=== PATIENT | female | born 2000 | race American Indian/Alaskan Native ===

== ENCOUNTER 2020-04-18 14:44 | Outpatient (CLI) | payer OTHER ==
--- NOTE | 2020-04-18 16:51 | XRay Report ---
ABDOMEN 1 VIEW 04/18/2020 3:44 PM INDICATION / CLINICAL INFORMATION: ABDOMINAL PAIN. COMPARISON: None available. FINDINGS: TUBES / LINES: None. BOWEL GAS PATTERN: No dilated small or large bowel. Moderate amount of fecal material throughout the colon. FREE AIR / EXTRALUMINAL GAS: None. ADDITIONAL FINDINGS: No significant additional findings. IMPRESSION: 1. No bowel obstruction or free air. Moderate fecal material throughout the colon. Signer Name: Jose Maria Lai MD Signed: 04/18/2020 4:47 PM Workstation Name: [id number]
--- NOTE | 2020-04-18 17:08 | XRay Report ---
PARANASAL SINUSES 4 VIEW(S) INDICATION / CLINICAL INFORMATION: SINUS PAIN, BLOCKAGE. COMPARISON: None available. FINDINGS: SINUSES: No air-fluid level. No mucosal thickening. ADDITIONAL FINDINGS: None. IMPRESSION: 1. No significant abnormality. Signer Name: Harpreet Zacarias MD Signed: 04/18/2020 5:04 PM Workstation Name: [id number]
== END 2020-04-18 14:45 | disposition home or self-care (01) ==
LOC: LAB 14:44
PROVIDERS: ATTEND Internal Medicine Hematology & Oncology
DX: R10.9 Unspecified abdominal pain (principal); J34.89 Other specified disorders of nose and nasal sinuses
CPT/HCPCS: 70220; 74018

== ENCOUNTER 2020-04-29 08:35 | Outpatient (CLI) | payer OTHER ==
--- NOTE | 2020-04-29 09:58 | Ultrasound Report ---
ULTRASOUND ABDOMEN, COMPLETE INDICATION: ABDOMINAL PAIN COMPARISON: None available. FINDINGS: Pancreas: Normal. Abdominal Aorta: Normal. IVC: Normal. Liver: Normal. Gallbladder: Normal. Bile ducts: Normal. Common Bile Duct measures 3-4 mm. Right Kidney: Mild pelvocaliectasis. Left Kidney: Normal. Spleen: Normal. Free fluid: None. Additional Findings: None. IMPRESSION: 1. Mild right renal pelvocaliectasis. Otherwise unremarkable abdominal ultrasound. Signer Name: Moi Becerra MD Signed: 04/29/2020 9:54 AM Workstation Name: [email or web address]
== END 2020-04-29 08:36 | disposition home or self-care (01) ==
LOC: US 08:35
PROVIDERS: ATTEND Internal Medicine Hematology & Oncology
DX: N28.89 Other specified disorders of kidney and ureter (principal)
CPT/HCPCS: 76700

== ENCOUNTER 2020-05-01 03:05 | Inpatient (IN) | payer OTHER ==
--- NOTE | 2020-05-01 03:28 | Emergency Department Report ---
Blank Doc - Documentation Documentation: 19-year-old female past medications except asthma department complaining of reed ving a sickle cell flareup pain to the right side and hip region. Reports no hemoptysis no hematemesis no fevers, chills, sweats. This initial assessment/diagnostic orders/clinical plan/treatment(s) is/are subject to change based on patients health status, clinical progression and re- assessment by fellow clinical providers in the ED. Further treatment and workup at subsequent clinical providers discretion. Patient/guardian urged not to elope from the ED as their condition may be serious if not clinically assessed and managed. Initial orders include: Is sickle cell protocol
[2020-05-01 04:48] LABS: Hematocrit 20.2 % (30.3-42.9); Hemoglobin 7.2 gm/dl (10.1-14.3); Mean Corpuscular HGB Conc 36 % (30-34); Mean Corpuscular Volume 86 fl (79-97); Platelet Count 599 K/mm3 (140-440); Red Blood Count 2.34 M/mm3 (3.65-5.03)
[2020-05-01 06:02] LABS: Anisocytosis 3+; Sickle Cells 2+; Total Cells Counted 100
[2020-05-01 06:03] LABS: Hypochromasia 2+; Platelet Estimate Consistent w Auto; Target Cells 1+
[2020-05-01] MEDS ORDERED: HYDROmorphone 1 MG/1 ML INJ IV ONE (06:14)
[2020-05-01] MEDS ORDERED: diphenhydrAMINE 50 MG/ML VIAL IV ONE (06:14)
[2020-05-01] MEDS ORDERED: ONDANSETRON 4 MG/2 ML INJ IV ONE (06:14)
[2020-05-01] MEDS: D5W/0.2% NACL 1,000 ML IV SCH ×2 (06:50→10:17)
--- NOTE | 2020-05-01 07:04 | Emergency Department Report ---
ED General Adult HPI - General Chief complaint: Sickle Cell Crisis Stated complaint: SICKLE CELL CRISIS LEG PAIN Time Seen by Provider: 05/01/20 06:11 Source: patient Mode of arrival: Ambulatory Limitations: No Limitations - History of Present Illness Initial comments: This is a 19-year old female with a history of sickle cell disease and no recent travel. She reports typical sickle cell pain involving both her legs diffusely and right hip over the last few days. She took oxycodone at home but is having breakthrough pain. She states that she feels weak in general. She questions as to whether or not she needs a transfusion. Her assistant operator is Dr. Parsons who apparently transfused her in 2020 with a hemoglobin of 6.2 : Hospitalization Reason for admission: SCD/acute pain crisis/anemia. Hospital course: Patient presented to the ER, with CC of diffuse joint pain, and unable to control at home, and in the office, she was admitted to the hospital, for sxs management, and control. She was treated , with hydration, pain control, and blood transfusion, for hgb of 5he tolerated her treatment well, and rated her pain at 6.5/10.No new issues at this time, and will be discharged home in the am of 05/28/2019. Disposition: DC-01 TO HOME OR SELFCARE - Discharge Diagnoses (1) Sickle cell anemia with pain Status: Inactive (2) Dehydration Status: Inactive (3) Generalized weakness Status: Inactive -: Gradual, days(s) Location: lower extremity Radiation: non-radiation Severity scale (0 -10): 9 Quality: aching Consistency: intermittent Improves with: none Worsens with: none Associated Symptoms: denies other symptoms Treatments Prior to Arrival: none - Related Data Home Medications Medication Instructions Recorded Confirmed Last Taken B Complex 1 tab PO DAILY 05/27/19 05/27/19 05/24/19 Folic Acid 1 tab PO DAILY 05/27/19 05/27/19 05/24/19 Hydroxyurea 500 mg PO DAILY 05/27/19 05/27/19 05/24/19 Allergies Allergy/AdvReac Type Severity Reaction Status Date / Time No Known Allergies Allergy Unverified 05/25/19 13:23 ED Review of Systems ROS: Stated complaint: SICKLE CELL CRISIS LEG PAIN Other details as noted in HPI Constitutional: weakness. denies: chills, fever Eyes: denies: eye pain, vision change ENT: denies: ear pain, throat pain Respiratory: denies: cough, shortness of breath Cardiovascular: denies: chest pain, palpitations Endocrine: no symptoms reported Gastrointestinal: denies: abdominal pain, nausea, diarrhea Genitourinary: denies: urgency, dysuria Musculoskeletal: as per HPI. denies: back pain Skin: denies: rash, lesions Neurological: denies: headache, weakness, paresthesias Psychiatric: denies: anxiety, depression Hematological/Lymphatic: denies: easy bleeding, easy bruising ED Past Medical Hx - Past Medical History Previous Medical History?: Yes Hx Sickle Cell Disease: Yes - Surgical History Past Surgical History?: Yes - Social History Smoking Status: Never Smoker Substance Use Type: None - Medications Home Medications: Home Medications Medication Instructions Recorded Confirmed Last Taken Type B Complex 1 tab PO DAILY 05/27/19 05/27/19 05/24/19 History Folic Acid 1 tab PO DAILY 05/27/19 05/27/19 05/24/19 History Hydroxyurea 500 mg PO DAILY 05/27/19 05/27/19 05/24/19 History ED Physical Exam - General Limitations: No Limitations General appearance: cachectic (Somewhat) - Head Head exam: Present: atraumatic - Eye Eye exam: Present: PERRL, EOMI - ENT ENT exam: Present: mucous membranes moist - Neck Neck exam: Present: normal inspection - Respiratory Respiratory exam: Present: normal lung sounds bilaterally. Absent: respiratory distress - Cardiovascular Cardiovascular Exam: Present: regular rate, normal rhythm. Absent: systolic murmur, diastolic murmur, rubs, gallop - GI/Abdominal GI/Abdominal exam: Present: soft, normal bowel sounds. Absent: distended, tenderness, guarding, rebound, rigid - Extremities Exam Extremities exam: Present: normal inspection, full ROM, normal capillary refill. Absent: tenderness, pedal edema, joint swelling, calf tenderness - Back Exam Back exam: Present: normal inspection - Neurological Exam Neurological exam: Present: alert, oriented X3, CN II-XII intact. Absent: motor sensory deficit - Psychiatric Psychiatric exam: Present: normal affect, normal mood - Skin Skin exam: Present: warm, dry, intact, normal color. Absent: rash ED Course Vital Signs 05/01/20 05/01/20 05/01/20 03:24 06:51 07:18 Temperature 98.3 F Pulse Rate 86 73 Respiratory 20 18 16 Rate Blood Pressure 118/57 Blood Pressure 119/71 [Right] O2 Sat by Pulse 93 97 Oximetry 05/01/20 07:20 Temperature Pulse Rate Respiratory 18 Rate Blood Pressure Blood Pressure [Right] O2 Sat by Pulse Oximetry - Reevaluation(s) Reevaluation #1: Hypotonic solution controlled rate. Analgesia. Recheck her chemistries type and screen and consult with hospitalist regarding admission. Reticulocyte count was over 14 and hemoglobin about 7. 05/01/20 07:05 Reevaluation #2: Discussed with hospitalist and will admit. Consult placed to assistant operator. 05/01/20 08:08 Reevaluation #3: Patient resting comfortably on reexam. She does not desire admission. 05/01/20 08:09 ED Medical Decision Making - Lab Data Result diagrams: 05/01/20 03:38 Critical care attestation.: If time is entered above; I have spent that time in minutes in the direct care of this critically ill patient, excluding procedure time. ED Disposition Clinical Impression: Vaso-occlusive sickle cell crisis, Symptomatic anemia Disposition: 09 OP ADMIT IP TO THIS HOSP Is pt being admited?: Yes Does the pt Need Aspirin: Yes Condition: Stable Referrals: JAMIE REID DO [Primary Care Provider] - 3-5 Days Time of Disposition: 08:09
[2020-05-01 07:30] LABS: INR 1.22 (0.87-1.13)
[2020-05-01 07:31] LABS: Partial Thromboplastin Time 32.8 Sec. (24.2-36.6)
[2020-05-01 07:48] LABS: Blood Urea Nitrogen 6 mg/dL (7-17); Calcium 9.3 mg/dL (8.4-10.2); Hemolysis Index 8
[2020-05-01 07:52] LABS: Albumin 4.7 g/dL (3.9-5); Bilirubin,Direct 0.5 mg/dL (0-0.2)
[2020-05-01 08:24] LABS: BUN/Creatinine Ratio 20
[2020-05-01 08:43] LABS: Bacteria,Urine 1+ /HPF (Negative); Bilirubin,Urine NEG (Negative); Blood,Urine MOD (Negative); Color,Urine Yellow (Yellow); Mucus,Urine FEW /HPF; Urobilinogen,Urine < 2.0 mg/dL (<2.0)
[2020-05-01] MEDS ORDERED: ONDANSETRON 4 MG/2 ML INJ IV PRN (10:42)
[2020-05-01] MEDS ORDERED: MAGNESIUM HYDROXIDE (MOM) ORAL LIQD UDC PO PRN (10:42)
[2020-05-01] MEDS ORDERED: NALOXONE 0.4 MG/1 ML INJ IV PRN (10:42)
[2020-05-01] MEDS ORDERED: diphenhydrAMINE 25 MG CAP PO PRN (10:42)
[2020-05-01] MEDS ORDERED: HYDROmorphone 2 MG/1 ML INJ IV ONE (10:45)
--- NOTE | 2020-05-01 10:51 | History and Physical Report ---
History of Present Illness Date of examination: 05/01/20 Date of admission: 05/01/20 08:10 Chief complaint: Generalized body pains and bilateral lower extremity pain History of present illness: 19-year old female patient with significant past medical history of sickle cell disease and no recent travel. Presented to the emergency room with generalized body pains mainly , leg and and right hip pain over the last few days. She took oxycodone at home but is having breakthrough pain. She also complains of generalized weakness. She claims compliance with her medications and follows with computational mathematician Dr. Osiel maguire. She had a couple of transfusions in the past. Had an episode of 101 degrees fall in height fever this morning denies nausea vomiting abdominal pain. Denies chest pain or shortness of breath, Complains of generalized weakness Initial work-up in the emergency room findings consistent with leukocytosis, hyperbilirubinemia, UA findings consistent with UTI Hemoglobin 7.2. Patient had transfusion for hemoglobin of 6.2 in 2019 Past History Past Medical History: anemia (Sickle cell anemia), other (Sickle cell disease) Past Surgical History: No surgical history Social history: denies: smoking, alcohol abuse, prescription drug abuse Family history: no significant family history Medications and Allergies Allergies Allergy/AdvReac Type Severity Reaction Status Date / Time No Known Allergies Allergy Unverified 05/25/19 13:23 Home Medications Medication Instructions Recorded Confirmed Last Taken Type B Complex 1 tab PO DAILY 05/27/19 05/01/20 05/24/19 History Folic Acid 1 tab PO DAILY 05/27/19 05/01/20 05/24/19 History OXYCODONE hcl [Oxycodone] 15 mg PO Q8H 05/01/20 05/01/20 Unknown History Voxelotor [Oxbryta] 1,500 tab PO QDAY 05/01/20 05/01/20 Unknown History Active Meds: Active Medications Bisacodyl (Bisacodyl 10 Mg Rect Supp) 10 mg MS QDAY PRN PRN Reason: Constipation unrelieved by MOM Diphenhydramine HCl (Diphenhydramine 25 Mg Cap) 25 mg PO Q6H PRN PRN Reason: Itching Folic Acid (Folic Acid 1 Mg Tab) 1 mg PO QDAY [facility]NA Hydromorphone HCl (Hydromorphone 2 Mg/1 Ml Inj) 2 mg IV ONCE ONE Stop: 05/01/20 10:46 Hydromorphone HCl (Hydromorphone 2 Mg/1 Ml Inj) 2 mg IV Q3H PRN PRN Reason: Pain , Severe (7-10) Stop: 05/02/20 10:41 Dextrose/Sodium Chloride (D5ns 0.2%) 1,000 mls @ 250 mls/hr IV DIRECT LENA Last Admin: 05/01/20 10:17 Dose: 250 mls/hr Documented by: Dextrose/Sodium Chloride (D5/0.45ns) 1,000 mls @ 150 mls/hr IV DIRECT LENA Stop: 05/01/20 17:39 Magnesium Hydroxide (Magnesium Hydroxide (Mom) Oral Liqd Udc) 30 ml PO Q4H PRN PRN Reason: Constipation Miscellaneous Medication (Hydroxyurea) 500 mg PO DAILY [facility] Multivitamins (Multivitamins ,Therapeutic Tab) 1 each PO QDAY [facility] Naloxone HCl (Naloxone 0.4 Mg/1 Ml Inj) 0.1 mg IV Q2MIN PRN PRN Reason: Res Rate </= 8 or 02 SAT < 92% Ondansetron HCl (Ondansetron 4 Mg/2 Ml Inj) 4 mg IV Q4H PRN PRN Reason: Nausea And Vomiting Senna (Sennosides 8.6 Mg Tab) 17.2 mg PO QHS [facility] Review of Systems Constitutional: fever, fatigue, no weight loss, no weight gain Ears, nose, mouth and throat: no nasal congestion, no nasal discharge Cardiovascular: no chest pain, no orthopnea, no palpitations, no shortness of breath Respiratory: no cough, no cough with sputum Gastrointestinal: no abdominal pain, no nausea, no vomiting Genitourinary Female: no flank pain, no dysuria Musculoskeletal: neck pain, shooting leg pain, myalgias, other (Generalized body pains) Integumentary: no rash, no lesions Neurological: weakness, headaches, other (Generalized body pains), no numbness, no seizures, no syncope Psychiatric: no anxiety, no depression Endocrine: no cold intolerance, no heat intolerance Hematologic/Lymphatic: no easy bruising, no easy bleeding Allergic/Immunologic: no urticaria, no allergic rhinitis Exam - Constitutional Vitals: Temp Pulse Resp BP Pulse Ox 101.0 F H 83 18 122/66 96 05/01/20 10:12 05/01/20 10:12 05/01/20 09:11 05/01/20 10:12 05/01/20 10:12 General appearance: Present: mild distress, well-nourished - EENT Eyes: Present: PERRL, EOM intact - Neck Neck: Present: supple, normal ROM - Respiratory Respiratory effort: normal Respiratory: bilateral: diminished, negative: rales, rhonchi, wheezing - Cardiovascular Rhythm: regular Heart Sounds: Present: S1 & S2 - Extremities Extremities: no ischemia, No edema - Abdominal General gastrointestinal: Present: soft, non-tender, non-distended, normal bowel sounds - Integumentary Integumentary: Present: clear, warm - Musculoskeletal Musculoskeletal: strength equal bilaterally, generalized weakness - Psychiatric Psychiatric: appropriate mood/affect, cooperative - Neurologic Neurologic: CNII-XII intact, moves all extremities Results - Labs CBC & Chem 7: 05/01/20 03:38 05/01/20 06:52 Labs: Abnormal lab results 05/01/20 05/01/20 05/01/20 Range/Units 03:38 06:52 06:52 WBC 18.5 H (4.5-11.0) K/mm3 RBC 2.34 L (3.65-5.03) M/mm3 Hgb 7.2 L (10.1-14.3) gm/dl Hct 20.2 L (30.3-42.9) % MCHC 36 H (30-34) % RDW 28.0 H (13.2-15.2) % Plt Count 599 H (140-440) K/mm3 Seg Neuts % (Manual) 77.0 H (40.0-70.0) % Lymphocytes % (Manual) 13.0 L (13.4-35.0) % Monocytes % (Manual) 10.0 H (0.0-7.3) % Seg Neutrophils # Man 14.2 H (1.8-7.7) K/mm3 Monocytes # (Manual) 1.9 H (0.0-0.8) K/mm3 Percent Retic 17.36 H (0.78-2.58) % PT 15.2 H (12.2-14.9) Sec. INR 1.22 H (0.87-1.13) BUN 6 L (7-17) mg/dL Creatinine 0.3 L (0.6-1.2) mg/dL Glucose 114 H (65-100) mg/dL Total Bilirubin (0.1-1.2) mg/dL Direct Bilirubin (0-0.2) mg/dL 05/01/20 Range/Units 06:52 WBC (4.5-11.0) K/mm3 RBC (3.65-5.03) M/mm3 Hgb (10.1-14.3) gm/dl Hct (30.3-42.9) % MCHC (30-34) % RDW (13.2-15.2) % Plt Count (140-440) K/mm3 Seg Neuts % (Manual) (40.0-70.0) % Lymphocytes % (Manual) (13.4-35.0) % Monocytes % (Manual) (0.0-7.3) % Seg Neutrophils # Man (1.8-7.7) K/mm3 Monocytes # (Manual) (0.0-0.8) K/mm3 Percent Retic (0.78-2.58) % PT (12.2-14.9) Sec. INR (0.87-1.13) BUN (7-17) mg/dL Creatinine (0.6-1.2) mg/dL Glucose (65-100) mg/dL Total Bilirubin 2.20 H (0.1-1.2) mg/dL Direct Bilirubin 0.5 H (0-0.2) mg/dL Assessment and Plan --Sickle cell disease/with painful crisis; IV fluids, oxygen titrate O2 sats to more than 90% Rigorous IV hydration, pain medications Hematology consult if Dr. Whitaker is available --Sickle cell anemia; closely monitor H&H Transfuse PRBC as needed --Severe dehydration; Aggressive IV hydration Supportive care --Leukocytosis; Evaluate for sepsis Cultures, empiric antibiotics --Possible urinary tract infection per UA; Empiric antibiotics Levaquin Urine cultures closely monitor --DVT prophylaxis; Lovenox Closely monitor the patient and adjust management as needed Plan of care reviewed with the patient and her nurse
[2020-05-01] MEDS: FOLIC ACID 1 MG TAB PO SCH (10:58)
[2020-05-01] MEDS ORDERED: MELATONIN 5 MG TAB PO PRN (10:59)
[2020-05-01] MEDS ORDERED: D5W/0.45% NACL 1,000 ML IV SCH (11:00)
--- NOTE | 2020-05-01 11:53 | XRay Report ---
CHEST 1 VIEW 05/01/2020 11:12 AM INDICATION / CLINICAL INFORMATION: Fever/evaluate for pneumonia. COMPARISON: None available. FINDINGS: SUPPORT DEVICES: None. HEART / MEDIASTINUM: Upper limits normal size of the cardiac silhouette versus mild cardiomegaly. LUNGS / PLEURA: No significant pulmonary or pleural abnormality. No pneumothorax. ADDITIONAL FINDINGS: No significant additional findings. IMPRESSION: 1. Upper limits normal size cardiac silhouette versus mild cardiomegaly. Lungs are clear without evid ence of acute cardiopulmonary process. Signer Name: Harpreet Zacarias MD Signed: 05/01/2020 11:49 AM Workstation Name: [id number]
[2020-05-01] MEDS: ACETAMINOPHEN 325 MG TAB PO PRN (12:13)
[2020-05-01] MEDS: OXYCODONE 15 MG TAB PO SCH ×2 (12:14→23:01)
[2020-05-01] MEDS: HYDROmorphone 2 MG/1 ML INJ IV PRN ×2 (17:41→20:35)
[2020-05-01] MEDS: FAMOTIDINE 20 MG TAB PO SCH (23:00)
[2020-05-01] MEDS: SENNOSIDES 8.6 MG TAB PO SCH (23:00)
[2020-05-01] MEDS: ENOXAPARIN 40 MG/0.4 ML INJ SUB-Q SCH (23:01)
[2020-05-02] MEDS: ACETAMINOPHEN 325 MG TAB PO PRN ×3 (03:16→23:12)
[2020-05-02] MEDS: OXYCODONE 15 MG TAB PO SCH ×3 (04:47→19:20)
[2020-05-02 06:02] LABS: Hemoglobin 6.2 gm/dl (10.1-14.3); Mean Corpuscular HGB Conc 35 % (30-34); Mean Corpuscular Volume 84 fl (79-97); Platelet Count 488 K/mm3 (140-440); Red Blood Count 2.08 M/mm3 (3.65-5.03)
[2020-05-02 06:14] LABS: Hematocrit 17.5 % (30.3-42.9); Red Cell Distribution Width 27.7 % (13.2-15.2)
[2020-05-02 06:19] LABS: Blood Urea Nitrogen 6 mg/dL (7-17); Calcium 9.2 mg/dL (8.4-10.2); Hemolysis Index 18
[2020-05-02 06:23] LABS: BUN/Creatinine Ratio 20
[2020-05-02] MEDS ORDERED: SODIUM CHLORIDE 0.9% 500 ML 500 ML IV SCH (07:30)
--- NOTE | 2020-05-02 08:01 | Progress Note ---
Assessment and Plan Assessment and plan: --Sickle cell anemia; Patient's hemoglobin 6.2 , no external evidence of bleeding Type and cross , transfuse 1 unit of PRBC today closely monitor H&H,Transfuse additional PRBC as needed --Sickle cell disease/with painful crisis; IV fluids, oxygen titrate O2 sats to more than 90% Rigorous IV hydration, pain medications Hematology consult if Dr. Whitaker is available --Severe dehydration; mild improvement Aggressive IV hydration, Supportive care --Leukocytosis; Probably secondary to UTI Patient was febrile on admission , leukocytosis UA findings consistent with UTI , follow cultures and sensitivities Adjust antibiotics as needed --Possible urinary tract infection per UA; Empiric antibiotics Levaquin Follow urine cultures --DVT prophylaxis; Lovenox Closely monitor the patient and adjust management as needed Plan of care reviewed with the patient and her nurse History Interval history: I have seen and examined the patient at the bedside Patient's chart and medications reviewed Patient's hemoglobin 6.2, no external evidence of bleeding Will type and cross and request 1 unit PRBC transfusion Patient complains of generalized body pains Low-grade fever Vital signs noted Hospitalist Physical - Constitutional Vitals: Temp Pulse Resp BP Pulse Ox 99.2 F 101 H 20 118/53 92 05/02/20 04:18 05/02/20 04:18 05/02/20 04:18 05/02/20 04:18 05/02/20 04:18 General appearance: Present: mild distress, well-nourished, other (Low-grade fever) - EENT Eyes: Present: PERRL, EOM intact - Neck Neck: Present: supple, normal ROM - Respiratory Respiratory effort: normal Respiratory: bilateral: diminished, negative: rales, rhonchi, wheezing - Cardiovascular Rhythm: regular Heart Sounds: Present: S1 & S2 - Extremities Extremities: no ischemia, No edema - Abdominal General gastrointestinal: soft, non-tender, non-distended - Integumentary Integumentary: Present: clear, warm - Psychiatric Psychiatric: appropriate mood/affect, cooperative - Neurologic Neurologic: CNII-XII intact, moves all extremities Results - Labs CBC & Chem 7: 05/02/20 14:24 05/02/20 05:37 Labs: Laboratory Last Values WBC 20.2 K/mm3 (4.5-11.0) H 05/02/20 05:37 RBC 2.08 M/mm3 (3.65-5.03) L 05/02/20 05:37 Hgb 6.2 gm/dl (10.1-14.3) L 05/02/20 05:37 Hct 17.5 % (30.3-42.9) L* 05/02/20 05:37 MCV 84 fl (79-97) 05/02/20 05:37 MCH 30 pg (28-32) 05/02/20 05:37 MCHC 35 % (30-34) H 05/02/20 05:37 RDW 27.7 % (13.2-15.2) H 05/02/20 05:37 Plt Count 488 K/mm3 (140-440) H 05/02/20 05:37 Add Manual Diff Complete 05/01/20 03:38 Total Counted 100 05/01/20 03:38 Seg Neuts % (Manual) 77.0 % (40.0-70.0) H 05/01/20 03:38 Lymphocytes % (Manual) 13.0 % (13.4-35.0) L 05/01/20 03:38 Monocytes % (Manual) 10.0 % (0.0-7.3) H 05/01/20 03:38 Nucleated RBC % Not Reportable 05/01/20 03:38 Seg Neutrophils # Man 14.2 K/mm3 (1.8-7.7) H 05/01/20 03:38 Band Neutrophils # 0.0 K/mm3 05/01/20 03:38 Lymphocytes # (Manual) 2.4 K/mm3 (1.2-5.4) 05/01/20 03:38 Abs React Lymphs (Man) 0.0 K/mm3 05/01/20 03:38 Monocytes # (Manual) 1.9 K/mm3 (0.0-0.8) H 05/01/20 03:38 Eosinophils # (Manual) 0.0 K/mm3 (0.0-0.4) 05/01/20 03:38 Basophils # (Manual) 0.0 K/mm3 (0.0-0.1) 05/01/20 03:38 Metamyelocytes # 0.0 K/mm3 05/01/20 03:38 Myelocytes # 0.0 K/mm3 05/01/20 03:38 Promyelocytes # 0.0 K/mm3 05/01/20 03:38 Blast Cells # 0.0 K/mm3 05/01/20 03:38 WBC Morphology Not Reportable 05/01/20 03:38 Hypersegmented Neuts Not Reportable 05/01/20 03:38 Hyposegmented Neuts Not Reportable 05/01/20 03:38 Hypogranular Neuts Not Reportable 05/01/20 03:38 Smudge Cells Not Reportable 05/01/20 03:38 Toxic Granulation Not Reportable 05/01/20 03:38 Toxic Vacuolation Not Reportable 05/01/20 03:38 Dohle Bodies Not Reportable 05/01/20 03:38 Pelger-Huet Anomaly Not Reportable 05/01/20 03:38 Jessica Rods Not Reportable 05/01/20 03:38 Platelet Estimate Consistent w auto 05/01/20 03:38 Clumped Platelets Not Reportable 05/01/20 03:38 Plt Clumps, EDTA Not Reportable 05/01/20 03:38 Large Platelets Not Reportable 05/01/20 03:38 Giant Platelets Not Reportable 05/01/20 03:38 Platelet Satelliting Not Reportable 05/01/20 03:38 Plt Morphology Comment Not Reportable 05/01/20 03:38 RBC Morphology Not Reportable 05/01/20 03:38 Dimorphic RBCs Not Reportable 05/01/20 03:38 Polychromasia Not Reportable 05/01/20 03:38 Hypochromasia 2+ 05/01/20 03:38 Poikilocytosis Not Reportable 05/01/20 03:38 Anisocytosis 3+ 05/01/20 03:38 Microcytosis 1+ 05/01/20 03:38 Macrocytosis Not Reportable 05/01/20 03:38 Spherocytes Not Reportable 05/01/20 03:38 Pappenheimer Bodies Not Reportable 05/01/20 03:38 Sickle Cells 2+ 05/01/20 03:38 Target Cells 1+ 05/01/20 03:38 Tear Drop Cells Not Reportable 05/01/20 03:38 Ovalocytes Not Reportable 05/01/20 03:38 Helmet Cells Not Reportable 05/01/20 03:38 [place] Bodies Not Reportable 05/01/20 03:38 Glidden Rings Not Reportable 05/01/20 03:38 Prabhakar Cells Not Reportable 05/01/20 03:38 Bite Cells Not Reportable 05/01/20 03:38 Crenated Cell Not Reportable 05/01/20 03:38 Elliptocytes Not Reportable 05/01/20 03:38 Acanthocytes (Spur) Not Reportable 05/01/20 03:38 Rouleaux Not Reportable 05/01/20 03:38 Hemoglobin C Crystals Not Reportable 05/01/20 03:38 Schistocytes Not Reportable 05/01/20 03:38 Malaria parasites Not Reportable 05/01/20 03:38 Percent Retic 18.18 % (0.78-2.58) H 05/02/20 05:37 Juno Bodies Not Reportable 05/01/20 03:38 Hem Pathologist Commnt No 05/01/20 03:38 PT 15.2 Sec. (12.2-14.9) H 05/01/20 06:52 INR 1.22 (0.87-1.13) H 05/01/20 06:52 APTT 32.8 Sec. (24.2-36.6) 05/01/20 06:52 Sodium 137 mmol/L (137-145) 05/02/20 05:37 Potassium 4.1 mmol/L (3.6-5.0) 05/02/20 05:37 Chloride 102.6 mmol/L (98-107) 05/02/20 05:37 Carbon Dioxide 28 mmol/L (22-30) 05/02/20 05:37 Anion Gap 11 mmol/L 05/02/20 05:37 BUN 6 mg/dL (7-17) L 05/02/20 05:37 Creatinine 0.3 mg/dL (0.6-1.2) L 05/02/20 05:37 Estimated GFR > 60 ml/min 05/02/20 05:37 BUN/Creatinine Ratio 20 % 05/02/20 05:37 Glucose 103 mg/dL (65-100) H 05/02/20 05:37 Calcium 9.2 mg/dL (8.4-10.2) 05/02/20 05:37 Magnesium 2.00 mg/dL (1.7-2.3) 05/01/20 06:52 Total Bilirubin 2.20 mg/dL (0.1-1.2) H 05/01/20 06:52 Direct Bilirubin 0.5 mg/dL (0-0.2) H 05/01/20 06:52 Indirect Bilirubin 1.7 mg/dL 05/01/20 06:52 AST 27 units/L (5-40) 05/01/20 06:52 ALT 22 units/L (7-56) 05/01/20 06:52 Alkaline Phosphatase 61 units/L (35-129) 05/01/20 06:52 Lactate Dehydrogenase 437 units/L (91-180) H 05/02/20 05:37 Total Protein 7.6 g/dL (6.3-8.2) 05/01/20 06:52 Albumin 4.7 g/dL (3.9-5) 05/01/20 06:52 Albumin/Globulin Ratio 1.6 % 05/01/20 06:52 Urine Color Yellow (Yellow) 05/01/20 07:18 Urine Turbidity Clear (Clear) 05/01/20 07:18 Urine pH 5.0 (5.0-7.0) 05/01/20 07:18 Ur Specific Crowder 1.011 (1.003-1.030) 05/01/20 07:18 Urine Protein 100 mg/dl mg/dL (Negative) 05/01/20 07:18 Urine Glucose (UA) Neg mg/dL (Negative) 05/01/20 07:18 Urine Ketones Neg mg/dL (Negative) 05/01/20 07:18 Urine Blood Mod (Negative) 05/01/20 07:18 Urine Nitrite Neg (Negative) 05/01/20 07:18 Urine Bilirubin Neg (Negative) 05/01/20 07:18 Urine Urobilinogen < 2.0 mg/dL (<2.0) 05/01/20 07:18 Ur Leukocyte Esterase Neg (Negative) 05/01/20 07:18 Urine WBC (Auto) 2.0 /HPF (0.0-6.0) 05/01/20 07:18 Urine RBC (Auto) 3.0 /HPF (0.0-6.0) 05/01/20 07:18 U Epithel Cells (Auto) 1.0 /HPF (0-13.0) 05/01/20 07:18 Urine Bacteria (Auto) 1+ /HPF (Negative) 05/01/20 07:18 Urine Mucus Few /HPF 05/01/20 07:18 Blood Type B POSITIVE 05/01/20 06:52 Antibody Screen Negative 05/01/20 06:52 Crossmatch See Detail 05/01/20 06:52 Microbiology: Microbiology 05/01/20 12:14 Peripheral/Venous Blood Culture - Preliminary Culture in Progress 05/01/20 12:14 Peripheral/Venous Blood Culture - Preliminary Culture in Progress Zuleta/IV: Voiding Method Toilet Active Medications - Current Medications Current Medications: Generic Name Dose Route Start Last Admin Trade Name Freq PRN Reason Stop Dose Admin Acetaminophen 650 mg 05/01/20 10:59 05/02/20 03:16 Acetaminophen 325 Mg Tab PO 650 mg Q4H PRN Administration Pain, Mild (1-3) Bisacodyl 10 mg 05/01/20 10:42 Bisacodyl 10 Mg Rect Supp NM QDAY PRN Constipation unrelieved by MOM Diphenhydramine HCl 25 mg 05/01/20 10:42 Diphenhydramine 25 Mg Cap PO Q6H PRN Itching Enoxaparin Sodium 40 mg 05/01/20 22:00 05/01/20 23:01 Enoxaparin 40 Mg/0.4 Ml Inj SUB-Q 40 mg QDAY@2200 [facility] Administration Protocol Famotidine 20 mg 05/01/20 22:00 05/01/20 23:00 Famotidine 20 Mg Tab PO 20 mg BID LENA Administration Folic Acid 1 mg 05/01/20 11:00 05/01/20 10:58 Folic Acid 1 Mg Tab PO 1 mg QDAY LENA Administration Hydromorphone HCl 2 mg 05/01/20 10:42 05/01/20 20:35 Hydromorphone 2 Mg/1 Ml Inj IV 05/02/20 10:41 2 mg Q3H PRN Administration Pain , Severe (7-10) Hydroxyurea 500 mg 05/02/20 10:00 Hydroxyurea 500 Mg Cap PO QDAY LENA Levofloxacin/Dextrose 750 mg in 150 mls @ 100 mls/hr 05/01/20 20:00 05/01/20 20:35 Levaquin 750mg/150ml IV 100 mls/hr Q24H LENA Administration Protocol Sodium Chloride 500 mls @ 0 mls/hr 05/02/20 07:30 Nacl 0.9% 500 Ml IV 05/02/20 20:00 ONCE LENA As Directed Magnesium Hydroxide 30 ml 05/01/20 10:42 Magnesium Hydroxide (Mom) Oral Liqd Udc PO Q4H PRN Constipation Melatonin 5 mg 05/01/20 10:59 Melatonin 5 Mg Tab PO QHS PRN Sleep Multivitamins 1 each 05/02/20 10:00 Multivitamins ,Therapeutic Tab PO QDAY LENA Naloxone HCl 0.1 mg 05/01/20 10:42 Naloxone 0.4 Mg/1 Ml Inj IV Q2MIN PRN Res Rate </= 8 or 02 SAT < 92% Ondansetron HCl 4 mg 05/01/20 10:42 Ondansetron 4 Mg/2 Ml Inj IV Q4H PRN Nausea And Vomiting Senna 17.2 mg 05/01/20 22:00 05/01/20 23:00 Sennosides 8.6 Mg Tab PO 17.2 mg QHS LENA Administration
[2020-05-02] MEDS ORDERED: HYDROXYUREA 500 MG PO SCH (10:00)
[2020-05-02] MEDS: MULTIVITAMINS ,THERAPEUTIC TAB PO SCH (11:40)
[2020-05-02] MEDS: HYDROXYUREA 500 MG CAP PO SCH (11:40)
[2020-05-02] MEDS: FAMOTIDINE 20 MG TAB PO SCH ×2 (11:40→21:37)
[2020-05-02] MEDS: FOLIC ACID 1 MG TAB PO SCH (11:40)
[2020-05-02 12:29] LABS: Total Cells Counted 100
[2020-05-02 12:31] LABS: Anisocytosis 3+
[2020-05-02 12:32] LABS: Sickle Cells 1+
[2020-05-02 12:33] LABS: Platelet Estimate Consistent w Auto
[2020-05-02] MEDS ORDERED: LIP THERAPY VASELINE TP PRN (14:38)
[2020-05-02 14:43] LABS: Mean Corpuscular HGB Conc 34 % (30-34); Mean Corpuscular Volume 87 fl (79-97); Platelet Count 533 K/mm3 (140-440); Red Blood Count 2.02 M/mm3 (3.65-5.03)
[2020-05-02 14:48] LABS: Red Cell Distribution Width 28.7 % (13.2-15.2)
[2020-05-02 14:51] LABS: Hemoglobin 5.9 gm/dl (10.1-14.3)
[2020-05-02 14:52] LABS: Basophils # (Auto) 0.1 K/mm3 (0.0-0.1); Basophils % (Auto) 0.4 % (0.0-1.8); Eosinophils # (Auto) 0.2 K/mm3 (0.0-0.4); Eosinophils % (Auto) 1.2 % (0.0-4.3); Hematocrit 17.6 % (30.3-42.9); Lymphocytes # (Auto) 2.4 K/mm3 (1.2-5.4); Lymphocytes % (Auto) 11.9 % (13.4-35.0); Monocytes # (Auto) 1.6 K/mm3 (0.0-0.8)
[2020-05-02] MEDS ORDERED: diphenhydrAMINE 50 MG/ML VIAL IV PRN (15:43)
[2020-05-02] MEDS ORDERED: dexAMETHasone 4 MG/ML VIAL IV PRN (15:50)
[2020-05-02] MEDS ORDERED: SODIUM CHLORIDE 0.9% 500 ML 500 ML IV ONE (17:00)
[2020-05-02 18:33] LABS: Anisocytosis 3+; Total Cells Counted 100
[2020-05-02 18:34] LABS: Sickle Cells 1+
[2020-05-02 18:35] LABS: Ovalocytes Rare
[2020-05-02 18:36] LABS: Large Platelets Rare; Platelet Estimate Consistent w Auto
[2020-05-02] MEDS: SENNOSIDES 8.6 MG TAB PO SCH (21:36)
[2020-05-02] MEDS: ENOXAPARIN 40 MG/0.4 ML INJ SUB-Q SCH (21:37)
[2020-05-02] MEDS ORDERED: SODIUM CHLORIDE 0.9% 500 ML 500 ML ONE (22:39)
[2020-05-03] MEDS: OXYCODONE 15 MG TAB PO SCH ×2 (04:13→11:00)
[2020-05-03 06:20] LABS: Hematocrit 25.1 % (30.3-42.9); Hemoglobin 8.9 gm/dl (10.1-14.3); Mean Corpuscular HGB Conc 35 % (30-34); Mean Corpuscular Volume 87 fl (79-97); Platelet Count 537 K/mm3 (140-440); Red Blood Count 2.89 M/mm3 (3.65-5.03)
[2020-05-03 06:25] LABS: Red Cell Distribution Width 21.5 % (13.2-15.2)
[2020-05-03 10:13] VITALS: BP 115/58
[2020-05-03] MEDS: FAMOTIDINE 20 MG TAB PO SCH (10:24)
[2020-05-03] MEDS: HYDROXYUREA 500 MG CAP PO SCH (10:24)
[2020-05-03] MEDS: FOLIC ACID 1 MG TAB PO SCH (10:24)
[2020-05-03] MEDS: MULTIVITAMINS ,THERAPEUTIC TAB PO SCH (10:24)
[2020-05-03 11:47] LABS: Total Cells Counted 100
[2020-05-03 11:48] LABS: Anisocytosis 1+
[2020-05-03 11:49] LABS: Hypochromasia Rare; Sickle Cells 1+
[2020-05-03 11:51] LABS: Platelet Estimate Consistent w Auto
--- NOTE | 2020-05-03 12:13 | Discharge Summary ---
Providers - Providers Date of Admission: 05/02/20 15:32 Date of discharge: 05/03/20 Attending physician: JOÃO AWAD Primary care physician: JAMIE REID Hospitalization Condition: Stable Hospital course: Discharge diagnosis; --Sickle cell disease/with painful crisis; IV fluids, oxygen titrate O2 sats to more than 90% Rigorous IV hydration, pain medications Hematology consult if Dr. Whitaker is available --Sickle cell anemia; closely monitor H&H Received total 2 unit of PRBC additional PRBC if needed PRBC as needed --Febrile illness; improved Secondary to urinary tract infection --SIRS. Due to UTI --Severe dehydration; mild improvement Aggressive IV hydration Supportive care --Leukocytosis; trending down Secondary to UTI Cultures, empiric antibiotics --Tachycardia; present on admission improved --Possible urinary tract infection per UA; Empiric antibiotics Levaquin Urine cultures closely monitor --DVT prophylaxis; Lovenox Patient was anticipated to stay for more than 2 midnights to closely monitor Her H&H transfuse additional PRBC if needed, leukocytosis and UTI I strongly advised the patient to continue treatment next 24 hours However patient is a student and is very concerned about her classes and assignments And requested me to be discharged today and promised that she will follow up with her Surgical Technologist HERIBERTO. Disposition: DC- TO HOME OR SELFCARE Time spent for discharge: 34 min Core Measure Documentation - Palliative Care Palliative Care/ Comfort Measures: Not Applicable - Core Measures Any of the following diagnoses?: none Exam - Constitutional Vitals: Temp Pulse Resp BP Pulse Ox 98.4 F 73 18 115/58 99 05/03/20 09:07 05/03/20 09:07 05/03/20 09:07 05/03/20 09:07 05/03/20 09:07 General appearance: Present: no acute distress, well-nourished - EENT Eyes: Present: PERRL, EOM intact - Neck Neck: Present: supple, normal ROM Plan Activity: advance as tolerated Diet: regular Additional Instructions: Advised to see your private equipment planner within 1 week. If you have worsening symptoms contact MD or go to emergency room. Please give the patient 1 week excuse from school from 05/04/2020 -05/10/2020 Follow up with: JAMIE REID DO [Primary Care Provider] - 3-5 Days Prescriptions: Hydroxyurea 500 mg PO QDAY #30 capsule levoFLOXacin [Levaquin] 750 mg PO QDAY #5 tablet Oxycodone HCl/Acetaminophen [Percocet 7.5/325 mg] 1 each PO Q8H PRN #15 tablet PRN Reason: Pain , Severe (7-10)
== END 2020-05-03 14:27 | disposition home or self-care (01) | DRG 812 ==
LOC: ED 03:05 → 4A 08:10 → OBSVTOIN 05-02 15:32
PROVIDERS: ADMIT Internal Medicine; ATTEND Internal Medicine
PROC: 30233N1 Transfusion of Nonautologous Red Blood Cells into Peripheral Vein, Percutaneous Approach (ICD-10-PCS; principal; 2020-05-02)
DX: D57.00 Hb-SS disease with crisis, unspecified (principal); N39.0 Urinary tract infection, site not specified; E44.0 Moderate protein-calorie malnutrition; Z68.1 Body mass index [BMI] 19.9 or less, adult; D64.9 Anemia, unspecified; E86.0 Dehydration; D72.829 Elevated white blood cell count, unspecified; Z79.899 Other long term (current) drug therapy
CPT/HCPCS: 36415; 71045; 80048; 80076; 81001; 82962; 83615; 83735; 85007; 85014; 85018; 85025; 85045; 85610; 85730; 86850; 86900; 86901; 86920; 87040; 87086; 96361; 96374; 96375; G0378; J1170; J1200; J1650; J1956; J2405; J7040; P9016

== ENCOUNTER 2021-03-14 18:18 | Emergency (ER) | payer OTHER ==
[2021-03-14 19:57] VITALS: BP 129/65
--- NOTE | 2021-03-15 00:47 | Emergency Department Report ---
- General Chief Complaint: Upper Respiratory Infection Stated Complaint: COUGH AND SORE THROAT Time Seen by Provider: 03/14/21 22:18 Source: patient Mode of arrival: Ambulatory Limitations: No Limitations - History of Present Illness Initial Comments: Patient presents for URI symptoms including cough and scratchy throat for the past 3 days. Patient states history of However there is no productive cough noted at this time no fevers no chills no shortness of breath no wheezing no stridor. Patient states scratchy throat is exacerbated by swallowing however there is been no fever. Patient continues to tolerate p.o. intake without problems. Patient appears well well-hydrated well-nourished with no acute distress. Patient rates symptoms at 05/25. MD Complaint: cough, sore throat - Related Data Home Medications Medication Instructions Recorded Confirmed Last Taken B Complex 1 tab PO DAILY 05/27/19 02/13/21 05/24/19 Folic Acid 1 tab PO DAILY 05/27/19 02/13/21 05/24/19 OXYCODONE hcl [Oxycodone] 15 mg PO Q8H 05/01/20 02/13/21 Unknown Voxelotor [Oxbryta] 1,500 tab PO QDAY 05/01/20 02/13/21 Unknown Previous Rx's Medication Instructions Recorded Last Taken Type Hydroxyurea 500 mg PO QDAY #30 capsule 05/03/20 Unknown Rx Oxycodone HCl/Acetaminophen 1 each PO Q8H PRN #15 tablet 05/03/20 Unknown Rx [Percocet 7.5/325 mg] levoFLOXacin [Levaquin] 750 mg PO QDAY #5 tablet 05/03/20 Unknown Rx levoFLOXacin [Levaquin] 750 mg PO QDAY #8 tablet 02/15/21 Unknown Rx Guaifenesin/Pseudoephedrne HCl 1 tab PO BID PRN #24 tab 03/15/21 Unknown Rx [Mucinex D ER 1,200-120 mg Tab] Ibuprofen [Motrin 800 MG tab] 800 mg PO Q8HR PRN #30 tablet 03/15/21 Unknown Rx Allergies Allergy/AdvReac Type Severity Reaction Status Date / Time No Known Allergies Allergy Verified 03/14/21 19:55 ED Review of Systems ROS: Stated complaint: COUGH AND SORE THROAT Other details as noted in HPI Constitutional: denies: chills, fever Eyes: denies: eye pain, eye discharge, vision change ENT: throat pain, congestion. denies: ear pain Respiratory: denies: cough, shortness of breath, wheezing Cardiovascular: denies: chest pain, palpitations Endocrine: no symptoms reported Gastrointestinal: denies: abdominal pain, nausea, vomiting, diarrhea Genitourinary: denies: urgency, dysuria, discharge Musculoskeletal: denies: back pain, joint swelling, arthralgia Skin: denies: rash, lesions Neurological: denies: headache, weakness, paresthesias Psychiatric: denies: anxiety, depression Hematological/Lymphatic: denies: easy bleeding, easy bruising ED Past Medical Hx - Past Medical History Hx Congestive Heart Failure: No Hx Diabetes: No Hx Sickle Cell Disease: Yes Hx Asthma: No Hx COPD: No Hx HIV: No - Surgical History Past Surgical History?: No - Social History Smoking Status: Never Smoker - Medications Home Medications: Home Medications Medication Instructions Recorded Confirmed Last Taken Type B Complex 1 tab PO DAILY 05/27/19 02/13/21 05/24/19 History Folic Acid 1 tab PO DAILY 05/27/19 02/13/21 05/24/19 History OXYCODONE hcl [Oxycodone] 15 mg PO Q8H 05/01/20 02/13/21 Unknown History Voxelotor [Oxbryta] 1,500 tab PO QDAY 05/01/20 02/13/21 Unknown History Hydroxyurea 500 mg PO QDAY #30 capsule 05/03/20 02/13/21 Unknown Rx Oxycodone HCl/Acetaminophen 1 each PO Q8H PRN #15 tablet 05/03/20 02/13/21 Unknown Rx [Percocet 7.5/325 mg] levoFLOXacin [Levaquin] 750 mg PO QDAY #5 tablet 05/03/20 02/13/21 Unknown Rx levoFLOXacin [Levaquin] 750 mg PO QDAY #8 tablet 02/15/21 Unknown Rx Guaifenesin/Pseudoephedrne HCl 1 tab PO BID PRN #24 tab 03/15/21 Unknown Rx [Mucinex D ER 1,200-120 mg Tab] Ibuprofen [Motrin 800 MG tab] 800 mg PO Q8HR PRN #30 tablet 03/15/21 Unknown Rx ED Physical Exam - General Limitations: No Limitations General appearance: alert, in no apparent distress - Head Head exam: Present: atraumatic, normocephalic - Eye Eye exam: Present: normal appearance, PERRL, EOMI Pupils: Present: normal accommodation - ENT ENT exam: Present: normal orophraynx, mucous membranes moist, TM's normal bilaterally, normal external ear exam - Neck Neck exam: Present: normal inspection, full ROM. Absent: tenderness, lymphadenopathy, thyromegaly - Respiratory Respiratory exam: Present: normal lung sounds bilaterally. Absent: respiratory distress, wheezes, stridor, chest wall tenderness - Cardiovascular Cardiovascular Exam: Present: regular rate, normal rhythm, normal heart sounds. Absent: systolic murmur, diastolic murmur, rubs, gallop - GI/Abdominal GI/Abdominal exam: Present: soft, normal bowel sounds. Absent: distended, tenderness - Rectal Rectal exam: Present: deferred - Extremities Exam Extremities exam: Present: normal inspection, full ROM, normal capillary refill. Absent: tenderness - Back Exam Back exam: Present: normal inspection, full ROM. Absent: CVA tenderness (R), CVA tenderness (L), rash noted - Neurological Exam Neurological exam: Present: alert, oriented X3, CN II-XII intact, normal gait - Psychiatric Psychiatric exam: Present: normal affect, normal mood - Skin Skin exam: Present: warm, dry, intact, normal color ED Course Vital Signs 03/14/21 19:56 Temperature 98.8 F Pulse Rate 78 Respiratory 17 Rate Blood Pressure 129/65 O2 Sat by Pulse 94 Oximetry ED Medical Decision Making - Medical Decision Making This is a straightforward URI lung sounds are clear throughout, exam is normal airways patent no stridor no wheezing no lesions, no exudate. No fever and vital signs are normal. Patient will be DC'd to home at this time. Patient will follow with primary care doctor. Take [id number] decongestants and NSAIDs as needed for pain and congestion. Critical care attestation.: If time is entered above; I have spent that time in minutes in the direct care of this critically ill patient, excluding procedure time. ED Disposition Clinical Impression: URI (upper respiratory infection) Qualifiers: URI type: unspecified viral URI Qualified Code(s): J06.9 - Acute upper respiratory infection, unspecified Disposition: HOME / SELF CARE / HOMELESS Is pt being admited?: No Does the pt Need Aspirin: No Condition: Stable Instructions: Viral Respiratory Infection, [id number] Additional Instructions: Take medications as prescribed, hydrate as directed, follow-up with your doctor in 2 to 3 days. Return to emergency department should symptoms worsen. Prescriptions: Ibuprofen [Motrin 800 MG tab] 800 mg PO Q8HR PRN #30 tablet PRN Reason: pain Guaifenesin/Pseudoephedrne HCl [Mucinex D ER 1,200-120 mg Tab] 1 tab PO BID PRN #24 tab PRN Reason: congestion Referrals: PARKER WHYTE MD [Staff Physician] - 3-5 Days Forms: Work/School Release Form(ED) Time of Disposition: 00:49
== END 2021-03-15 01:43 | disposition home or self-care (01) ==
LOC: ED 18:18
DX: J06.9 Acute upper respiratory infection, unspecified (principal); D57.1 Sickle-cell disease without crisis
CPT/HCPCS: 99282